=== PATIENT | male | born 1985 | race Two or more races ===

== ENCOUNTER 2018-04-16 11:39 | Emergency (ER) | payer MEDICAID ==
[~2018-04-16] VITALS: Ht 177.8 cm; Wt 90.7 kg
[~2018-04-16 11:39] MED LIST: EASY COMFORT I1 EAC1 MC; EASY TOUCH INS MC; HUMALOG 75/255 UNIT1 SUBQ; LANTUS SOL100 UNIT/1 SUBQ; MIRTAZAPINE45 MG ORAL; NORCO 5-325 TA1 EACH ORAL; PHENERGAN SUPP25 MG RECTAL; PHENERGAN25 M1 ORAL; SEROQUEL300 MG ORAL
[2018-04-16 11:57] VITALS: BP 142/84
--- NOTE | 2018-04-16 12:06 | Emergency Room Report ---
History of Present Illness General Chief Complaint: Abdominal Pain Source: Patient Present Illness HPI Patient is a 34-year-old male who presented after increased abdominal pain. Patient reportedly prior history of diabetes. Patient states that he had been having increased abdominal discomfort which he describes a sharp in nature. Patient states he's had prior gallbladder surgery as well as appendectomy. He denies any fever. He had not been having any diarrhea or bloody stools. Patient states that he had been hospitalized about 3 months ago for DKA. Allergies: Coded Allergies: No Known Allergies (Unverified , 04/16/18) Patient History Reviewed Nursing Documentation: PMH: Agreed; PSxH: Agreed Nursing Documentation-PM Past Medical History: No History, Except For Hx Diabetes: Yes Review of Systems All Other Systems: negative except mentioned in HPI Physical Exam Vital Signs Date Time Temp Pulse Resp B/P (MAP) Pulse Ox O2 Delivery O2 Flow Rate FiO2 04/16/18 11:45 85 16 142/84 96 Room Air 04/16/18 11:57 99.0 99.0 Sp02 EP Interpretation: reviewed, normal General Appearance: normal inspection, well appearing, no apparent distress, alert, GCS 15 Head: atraumatic ENT: normal ENT inspection, hearing grossly normal, normal voice Neck: normal inspection, full range of motion, supple, no bony tend Respiratory: normal inspection, lungs clear, normal breath sounds, no respiratory distress, no retraction, no wheezing Cardiovascular #1: regular rate, rhythm, no edema Gastrointestinal: normal inspection, normal bowel sounds, non tender, soft, no guarding, no hernia, other - nontender, nondistended Genitourinary: no CVA tenderness Musculoskeletal: normal inspection, back normal, normal range of motion Neurologic: normal inspection, alert, responsive, speech normal Psychiatric: normal inspection, judgement/insight normal, mood/affect normal Skin: normal inspection, normal color, no rash Medical Decision Making Diagnostic Impression: Primary Impression: Abdominal pain Additional Impression: Diabetes type I ER Course Patient presented for abdominal pain. Differential diagnoses included ischemic bowel, appendicitis, perforated viscus, abdominal aortic aneurysm, inferior myocardial infarction, viral gastroenteritis Patient has a benign exam and does not appear to require any further imaging or laboratory testing at this time. The patient was noted to be type I diabetic and sugar appears to be adequate. Patient does not show any evidence of Kussmaul respirations. The patient was given IM pain medications.The patient has been seen by me before for similar symptoms. The patient was given IM the pain medications as well as subcutaneous insulin. He does not appear to be dehydrated.The patient does not appear to have any evidence of acute abdomen. The patient appears to not require any acute management in the emergency department. Patient may have some opiate withdrawal as he had previously been taking chronic narcotics.Patient will be the patient be discharged home to follow up with his pain management Last Vital Signs Date Time Temp Pulse Resp B/P (MAP) Pulse Ox O2 Delivery O2 Flow Rate FiO2 04/16/18 11:57 99.0 16 142/84 96 Room Air 99.0 04/16/18 11:45 85 Status: improved Disposition: HOME, SELF-CARE Condition: Stable Referrals: NOT CHOSEN IPA/,REFERRING (PCP) Kumar Hill MD Apr 16, 2018 12:06
[2018-04-16] MEDS ORDERED: Morphine Sulfate 2mg/ml Inj IM ONE (12:15)
[2018-04-16] MEDS ORDERED: Insulin Human Regular 100units/ml 3ml SUBQ ONE (12:15)
[2018-04-16 12:22] LABS: APPEARANCE,URINE CLEAR; BILIRUBIN, URINE NEGATIVE (NEGATIVE); COLOR,URINE PALE YELLOW; GLUCOSE, URINE (UA) 4+ (NEGATIVE); KETONES,URINE 3+ (NEGATIVE); LEUKOCYTE ESTERASE ,URINE NEGATIVE (NEGATIVE); NITRITE,URINE NEGATIVE (NEGATIVE); PH,URINE 5 (4.5-8.0); PROTEIN,URINE NEGATIVE (NEGATIVE); UROBILINOGEN,URINE NORMAL MG/DL (0.0-1.0)
[2018-04-16 12:49] VITALS: BP 140/80
== END 2018-04-16 12:55 | disposition home or self-care (01) ==
LOC: EDBD 11:55 → MERGE 11:55 → EMR 11:55 → EDUNIT# 11:55 → EMR 12:55
DX: R10.9 Unspecified abdominal pain (principal); E10.9 Type 1 diabetes mellitus without complications
CPT/HCPCS: 81003; 96372; 99283; J1815; J2270

== ENCOUNTER 2018-05-08 03:15 | Emergency (ER) | payer MEDICAID ==
[~2018-05-08] VITALS: Ht 177.8 cm; Wt 90.7 kg
[2018-05-08 03:36] VITALS: BP 141/91
--- NOTE | 2018-05-08 03:55 | Emergency Room Report ---
History of Present Illness General Chief Complaint: Abdominal Pain Source: Patient, Medical Record Present Illness HPI This is a 33-year-old male who has a history of diabetes and pancreatitis. He presents with chief complaint of abdominal pain. This is an ongoing recurrent issue. He said is out of his pain medication. He said he was just recently admitted to [facility] a blood infection and kidney infection. He presents with abdominal pain for last 2 days. He said his pancreatitis is acting up. Pain is 10 out of 10. Has nausea and vomiting. Denies any fever or chills. Said his compliant with his insulin. Similar symptom in the past. No diarrhea. Allergies: Coded Allergies: METOCLOPRAMIDE (Verified Allergy, Unknown, rash, 04/18/18) Patient History Past Medical History: see triage record, old chart reviewed Past Surgical History: other Pertinent Family History: none Social History: Denies: smoking Immunizations: other Reviewed Nursing Documentation: PMH: Agreed; PSxH: Agreed Nursing Documentation-PMH Hx Diabetes: Yes Hx Gastrointestinal Problems: Yes - Pancreatitis Review of Systems Eye: Denies: eye pain, blurred vision ENT: Denies: ear pain, nose congestion, throat swelling Respiratory: Denies: cough, shortness of breath Cardiovascular: Denies: chest pain, palpitations Gastrointestinal: Reports: abdominal pain; Denies: diarrhea, nausea, vomiting Musculoskeletal: Denies: back pain, joint pain Skin: Denies: rash Neurological: Denies: headache, numbness Endocrine: Denies: increased thirst, increased urine Hematologic/Lymphatic: Denies: easy bruising All Other Systems: negative except mentioned in HPI Physical Exam Vital Signs Date Time Temp Pulse Resp B/P (MAP) Pulse Ox O2 Delivery O2 Flow Rate FiO2 05/08/18 03:21 98.5 81 16 141/91 96 Room Air 98.4 vitals normal Sp02 EP Interpretation: reviewed, normal General Appearance: well appearing, no apparent distress, alert Head: normocephalic, atraumatic Eyes: bilateral eye PERRL, bilateral eye EOMI ENT: hearing grossly normal, normal pharynx Neck: full range of motion, supple, no meningismus Respiratory: chest non-tender, lungs clear, normal breath sounds Cardiovascular #1: regular rate, rhythm, no murmur Gastrointestinal: normal bowel sounds, no mass, no organomegaly, no bruit, non- distended, tenderness - diffuse Musculoskeletal: back normal, gait/station normal, normal range of motion Psychiatric: mood/affect normal Skin: warm/dry Medical Decision Making Diagnostic Impression: Primary Impression: Abdominal pain Qualified Codes: R10.84 - Generalized abdominal pain Additional Impressions: Diabetes type 1, uncontrolled Qualified Codes: E10.8 - Type 1 diabetes mellitus with unspecified complications; E10.65 - Type 1 diabetes mellitus with hyperglycemia Opiate dependence Qualified Codes: F11.20 - Opioid dependence, uncomplicated ER Course Patient with abdominal pain. He has couple visits here for that already. He also has evidence of recent hospital visit at other place. He still has IV oakes and tape oakes on his arms. Abdominal exam is soft. No evidence of any acute abdomen. On the [facility] system he get numerous pain medications from different doctors. In fact, he had 3 different narcotic prescription on March 25. The month of March he has 9 different prescriptions. He already had 3 different that show substance prescriptions in April. Because of this, I told patient that I will check blood work, control his hyperglycemia, and order CT scan to see if he has evidence of pancreatitis on the blood and CAT scan. I will hold off any controlled substance. Patient said that he does not want to stay in from not giving him any pain medication. Patient is competent to sign out AMA. Abdominal exam is benign. Is soft. No guarding. Last Vital Signs Date Time Temp Pulse Resp B/P (MAP) Pulse Ox O2 Delivery O2 Flow Rate FiO2 05/08/18 03:36 98.4 76 16 141/91 96 Room Air 98.4 Status: unchanged Disposition: AGAINST MEDICAL ADVICE Condition: Stable MIROSLAVA DIANA M.D. May 08, 2018 03:55
[2018-05-08] MEDS ORDERED: Ketorolac 30mg Inj IV ONE (04:00)
[2018-05-08 04:10] VITALS: BP 141/91
== END 2018-05-08 04:05 | disposition left against medical advice (07) ==
LOC: EMR 03:40
DX: R10.84 Generalized abdominal pain (principal); E10.8 Type 1 diabetes mellitus with unspecified complications; E10.65 Type 1 diabetes mellitus with hyperglycemia; F11.20 Opioid dependence, uncomplicated; Z88.8 Allergy status to other drugs, medicaments and biological substances
CPT/HCPCS: 80307; 82962; 99283